=== PATIENT | male | born 1965 | race Caucasian/White ===

== ENCOUNTER 2018-04-14 06:14 | Emergency (ER) | payer OTHER ==
[2018-04-14] MEDS ORDERED: Tetracaine 0.5% OPTH.SOL 4 ML* 1 DROP BTL BOTH EYES ONE (06:30)
[2018-04-14] MEDS ORDERED: Fluorescein Sod TOPICAL 0.6* 0.6 MG TEST OPHTHALMIC ONE (06:30)
--- NOTE | 2018-04-14 06:58 | ED ---
Throat Pain/Nasal Congestion - HPI Summary HPI Summary: Patient is a 52-year-old male who presents emergency department for eye pain. Patient states yesterday he was working on his car and got metal, dirt and rubber in his eyes. Patient was seen in an outside ER and was prescribed antibiotic drops and proparacaine. Patient states he only used numbing eye drop about 3 times last night. Pt. states they removed a piece of metal from left eye. Pt. states when he woke up this morning his pain was worse and could not open his eyes secondary to pain and presented to the ER with this . Pt. states he has extreme photophobia. Symptoms are moderate in severity. Patient also notes that he chipped a tooth yesterday would like that to be looked at. He states he is due to have multiple teeth extracted this summer. - History of Current Complaint Chief Complaint: EDEyeProblem Time Seen by Provider: 04/14/18 06:30 Hx Obtained From: Patient, Family/Glove Maker - Allergies/Home Medications Allergies/Adverse Reactions: Allergies Allergy/AdvReac Type Severity Reaction Status Date / Time Iodinated Contrast- Oral and Allergy Rash Verified 04/14/18 06:21 IV Dye metformin Allergy Diarrhea Verified 04/14/18 06:21 Home Medications: Home Medications Insulin GLARGINE(*) [Lantus(*)] 25 units SUBCUT DAILY 04/14/18 [History Confirmed 04/14/18] Metoprolol Succinate XL TAB* [Toprol XL TAB*] 50 mg PO DAILY 04/14/18 [History Confirmed 04/14/18] Ramipril CAP* [Altace CAP*] 2.5 mg PO DAILY 04/14/18 [History Confirmed 04/14/18 ] PMH/Surg Hx/FS Hx/Imm Hx Previously Healthy: Yes Endocrine/Hematology History: Reports: Hx Diabetes Denies: Hx Thyroid Disease Cardiovascular History: Reports: Hx Angina, Hx Coronary Artery Disease - STENT RCA, Hx Hypercholesterolemia - HLD, Hx Hypertension, Hx Myocardial Infarction, Other Cardiovascular Problems/Disorders - hx of CVA and TIA Denies: Hx Congestive Heart Failure, Hx Pacemaker/ICD Respiratory History: Denies: Hx Asthma, Hx Chronic Obstructive Pulmonary Disease (COPD) GI History: Denies: Hx Ulcer History: Denies: Hx Dialysis, Hx Renal Disease Musculoskeletal History: Denies: Hx Back Problems Sensory History: Reports: Hx Cataracts - S/P CATARACT SURGERY, Hx Contacts or Glasses - READER GLASSES Denies: Hx Hearing Aid Opthamlomology History: Reports: Hx Cataracts - S/P CATARACT SURGERY, Hx Contacts or Glasses - READER GLASSES Neurological History: Reports: Hx CVA Denies: Hx Dementia, Hx Seizures Psychiatric History: Denies: Hx Panic Disorder - Surgical History Surgery Procedure, Year, and Place: cardiac cath X2 2010 & 2011,cataracts Infectious Disease History: No Infectious Disease History: Denies: Hx Hepatitis, Hx Human Immunodeficiency Virus (HIV), Traveled Outside the [place] in Last 30 Days - Social History Lives: With Family Alcohol Use: None Alcohol Amount: unknown Substance Use Type: Reports: None Hx Tobacco Use: Yes Smoking Status (MU): Current Every Day Smoker Type: Cigarettes Amount Used/How Often: 1.5 packs per day Length of Time of Smoking/Using Tobacco: PT STATES HE STOPPED FOR A COUPLE YEARS Have You Smoked in the Last Year: Yes Review of Systems Constitutional: Negative Positive: Photophobia, Erythema Positive: Dental Pain All Other Systems Reviewed And Are Negative: Yes Physical Exam Triage Information Reviewed: Yes Vital Signs On Initial Exam: Initial Vitals Temp Pulse Resp BP Pulse Ox 97.5 F 70 16 134/73 96 04/14/18 06:17 04/14/18 06:17 04/14/18 06:17 04/14/18 06:17 04/14/18 06:17 Vital Signs Reviewed: Yes Appearance: Positive: Pain Distress - Pt. lyingin a dark room wearing sunglasses. Appears uncomfortable but nontoxic. present. Skin: Positive: Warm, Dry Head/Face: Positive: Normal Head/Face Inspection Eyes: Positive: EOMI, CLARA, Conjunctiva Inflammed, Other: - No periorbital erythema or edema. Anterior chamber is clear. No obvious corneal ulceration. Dental: Positive: Other - Poor dentition noted throughout. Fracture noted to tooth #19. Surrounding gums are not erythematous or edematous. No fluctuance. No facial swelling or trismus. Neck: Positive: Supple Neurological: Positive: Normal, CN Intact II-III Psychiatric: Positive: Normal Procedures - Procedure Summary Procedure Summary: Bilateral eyes were anesthetized with tetracaine drops and stained with fluorescein dye. Examined under Wood's lamp. Left: Small area of uptake at about 5 o clock. Larger area of uptake noted to the medial aspect of the cornea. No ulceration noted. Right: No significant uptake noted. Eye lids everted and no FB identified. Pt. tolerated well. Diagnostics - Vital Signs Vital Signs Temp Pulse Resp BP Pulse Ox 04/14/18 06:17 97.5 F 70 16 134/73 96 - Laboratory Lab Statement: Any lab studies that have been ordered have been reviewed, and results considered in the medical decision making process. EENT Course/Dx - Course Course Of Treatment: Patient presenting to the ER for reevaluation of eye pain. He appears to have multiple small corneal abrasions on exam. Visual acuity as documented. Pt.'s tetanus was updated today. I spoke with the nurse at Dr. Gotti's office, ophthalmology, and they can see patient in the office this morning after he is discharged from the ER. Will switch patient to erythromycin ointment instead of drops for comfort. Also advised patient that he should not use the numbing drops he was given from the ER yesterday. Advised him these drops can cause permanent damage his eye. Advised Tylenol or Motrin for pain as directed. Patient was also prescribed chlorhexidine mouthwash for his dentalgia and dental fracture. Advised to follow-up with his dentist as well. Patient understands and agrees with plan. Discharged with his to be seen by ophthalmology today. - Differential Diagnoses Differential Diagnoses: Corneal Abrasion, Foreign Body, Keratitis, Penetrating Injury, Uveitis - Diagnoses Provider Diagnoses: Corneal abrasion, Broken tooth Discharge - Sign-Out/Discharge Documenting (check all that apply): Discharge/Admit/Transfer - Discharge Plan Condition: Good Disposition: HOME Prescriptions: Chlorhexidine MOUTHWASH 0.12%* [Peridex Mouth Wash 0.12%*] 15 ml .SEE ORDER BID 7 Days #210 udc Erythromycin OPTH OINT* [Erythromycin 0.5% OPTH OINT*] 1 applic BOTH EYES QID 10 Days ophth.oint Erythromycin TOPICAL GEL* [Erythromycin OPTH OINT*] 1 applic TOPICAL TID #1 oint Patient Education Materials: Corneal Abrasion (ED), Toothache (ED) Referrals: Sourav Pham MD [Primary Care Provider] - Sudarshan Gotti MD [Medical Doctor] - Additional Instructions: Dr. Gotti will see you in his office this morning- go to his office after you are discharged from the ER Use erythromycin ointment antibiotic inside of prescribed drops Do not use proparacaine numbing eye drops Schedule a follow up with your dentist as well Tylenol or Motrin for pain as directed Return to ER immediately if symptoms change or worsen - Billing Disposition and Condition Condition: GOOD Disposition: HOME
[2018-04-14] MEDS ORDERED: Tetan/Diph/Pertus SYR(Tdap)* 0.5 ML SYR(BOOSTRIX) use SYR IM ONE (07:19)
[2018-04-14 08:18] VITALS: BP 122/67
== END 2018-04-14 08:14 | disposition home or self-care (01) ==
LOC: ED 06:14
DX: S05.02XA Injury of conjunctiva and corneal abrasion without foreign body, left eye, initial encounter (principal); X58.XXXA Exposure to other specified factors, initial encounter; Y93.89 Activity, other specified; Y92.9 Unspecified place or not applicable; Z23 Encounter for immunization; K03.81 Cracked tooth; E11.9 Type 2 diabetes mellitus without complications; Z79.4 Long term (current) use of insulin; I25.119 Atherosclerotic heart disease of native coronary artery with unspecified angina pectoris; I10 Essential (primary) hypertension; Z95.5 Presence of coronary angioplasty implant and graft; E78.00 Pure hypercholesterolemia, unspecified; Z86.73 Personal history of transient ischemic attack (TIA), and cerebral infarction without residual deficits; Z88.8 Allergy status to other drugs, medicaments and biological substances; Z91.041 Radiographic dye allergy status; F17.210 Nicotine dependence, cigarettes, uncomplicated
CPT/HCPCS: 90471; 90715; 99282; A9270-GY

== ENCOUNTER 2018-09-29 12:12 | Day surgery (SDC) | payer OTHER ==
[~2018-09-29 12:12] MED LIST: Buffered Lidocaine 0.9% SYRIN* 5 ML/SYR SYRINGE INTRADERM ONE
[2018-09-29] MEDS ORDERED: Propofol* 10 MG/ML 20 ML BTL IV PUSH ONE (12:31)
[2018-09-29] MEDS ORDERED: Succinylcholine* 20 MG/ML 10 ML VIAL ONE (12:31)
[2018-09-29] MEDS ORDERED: Lidocaine 2% PF * 5 ML VIAL ONE ×2 (12:31→15:17)
[2018-09-29] MEDS ORDERED: Rocuronium* 10 MG/ML VIAL ONE (14:09)
[2018-09-29] MEDS ORDERED: Sugammadex * 200 MG/2 ML VIAL IV PUSH ONE (14:10)
[2018-09-29] MEDS ORDERED: Morphine VIAL* 10 MG/ML 1 ML VIAL ONE (14:22)
[2018-09-29] MEDS ORDERED: Levalbuterol 1.25MG/0.5ML NEB ONE (14:22)
[2018-09-29] MEDS ORDERED: Midazolam* 1 MG/ML 5 ML VIAL (5 MG) ONE (14:32)
[2018-09-29] MEDS ORDERED: fentaNYL* 50 MCG/ML 2 ML VIAL (100 MCG VIAL) ONE (14:41)
[2018-09-29] MEDS ORDERED: Ondansetron INJ* 2 MG/ML VIAL ONE (15:00)
[2018-09-29] MEDS ORDERED: Dexamethasone IV* 4 MG/ML 1 ML (4 MG) ONE (15:00)
[2018-09-29] MEDS ORDERED: Metoclopramide IV* 5 MG/ML 2 ML VIAL IV PRN (15:07)
[2018-09-29] MEDS ORDERED: fentaNYL* 50 MCG/ML 2 ML VIAL (100 MCG VIAL) IV PRN (15:07)
[2018-09-29] MEDS ORDERED: Acetaminophen TAB* 325 MG PO PRN (15:07)
[2018-09-29] MEDS ORDERED: Naloxone* 0.4 MG/ML 1 ML VIAL IV PRN (15:07)
[2018-09-29] MEDS ORDERED: Benzonatate CAP* 100 MG PO ONE (16:19)
[2018-09-29 16:40] VITALS: BP 110/75
--- NOTE | 2018-09-30 04:08 | PRO ---
BRONCHOSCOPY REPORT: DATE OF PROCEDURE: 09/29/18 PROCEDURE PERFORMED: Bronchoscopy with endobronchial ultrasound-guided fine- needle aspiration from station 7 and station R4 lymph nodes. PRE-PROCEDURAL DIAGNOSIS: Lymphadenopathy. ANESTHESIA: General anesthesia. DESCRIPTION OF PROCEDURE: Informed consent was obtained from the patient prior to the procedure after all the risks and benefits were thoroughly explained. The patient with significant smoking history, recently found to have significant mediastinal and hilar adenopathy. The patient was intubated with size 8.5 endotracheal tube. Flexible bronchoscope was utilized at the bedside for airway inspection. No endobronchial lesions were noted, mucosal irregularity noted. Thick white secretions were noted and were suctioned. Bronchoscope was then withdrawn and EBUS bronchoscope was inserted. Station 7 lymph node was significantly enlarged and was accessed with 3 passes. Rapid on- site evaluation revealed lymphatic tissue, no malignant cells were noted. No evidence of granulomas was seen. Bronchoscope was then pulled back into station R4 level and was accessed with 2 passes. Rapid on-site evaluation revealed lymphatic tissue with no malignant cells, no granulomas seen. EBUS bronchoscope was then withdrawn and flexible bronchoscope was inserted and endobronchial biopsies were obtained with 4 passes from left lower lobe. No significant bleeding was noted. The patient tolerated the procedure well. The patient was extubated and seen in Recovery in optimal condition. [id number]/CPS #: [id number] [facility] CAMPUSGladys
== END 2018-09-29 16:57 | disposition home or self-care (01) ==
LOC: OR 12:12
PROVIDERS: ATTEND Internal Medicine
DX: J98.4 Other disorders of lung (principal); F17.200 Nicotine dependence, unspecified, uncomplicated; G47.9 Sleep disorder, unspecified; E66.09 Other obesity due to excess calories; E11.9 Type 2 diabetes mellitus without complications; Z79.84 Long term (current) use of oral hypoglycemic drugs
CPT/HCPCS: 88172; 88173; 88184; 88187; 88188; 88189; 88305; A9270-GY; J0330; J1100; J2250; J2270; J2405; J2704; J3010

== ENCOUNTER 2020-02-22 16:55 | Emergency (ER) | payer OTHER ==
[2020-02-22 17:16] LABS: ABS Basophils 0.1 10^3/ul (0-0.2); ABS Eosinophils 0.2 10^3/ul (0-0.6); ABS Lymphocytes 3.5 10^3/ul (1.0-4.8); ABS Monocytes 0.6 10^3/ul (0-0.8); ABS Neutrophils 6.6 10^3/ul (1.5-7.7); Eosinophil % 1.4 %; Hematocrit 41 % (42-52); Hemoglobin 14.6 g/dL (14.0-18.0); Lymphocyte % 32.1 %; Mean Corpuscular HGB Conc 36 g/dL (31-36); Mean Corpuscular Hemoglobin 28 pg (27-31); Mean Corpuscular Volume 79 fL (80-94); Mean Platelet Volume 7.7 fL (7.4-10.4); Platelet Count 225 10^3/uL (150-450); Red Cell Distribution Width 13 % (10-15); White Blood Count 10.9 10^3/uL (3.5-10.8)
--- OUTSIDE RECORDS SUMMARY | 2020-02-22 17:18 | XMS REPORT | Continuity of Care Document ---
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 - [facility] Care Team Information Boiler Plant Operator [facility] Care Team Information Boiler Plant Operator [facility] - Physical Therapy Problems Active Problems Provider Date Interstitial lung disease Sourav Pham M.D.,FACP Onset: 09/05/2018 Note: vs COPD Type II diabetes mellitus uncontrolled Francois Mcgregor M.D. Onset: 2016 Chronic ischemic heart disease Erick Wetzel M.D. Onset: 01/22/2016 Essential hypertension Erick Wetzel M.D. Onset: 01/29/2016 Hypertriglyceridemia Uche Ye NP Onset: 02/11/2016 H/O: TIA Uche Ye NP Onset: 01/16/2016 Note: went to [facility] er for slurred speech Cerebral artery occlusion Justice Foster MD Onset: 03/12/2016 Gastroesophageal reflux disease Uche Ye NP Onset: 07/04/2016 without esophagitis Very heavy cigarette smoker (40+ Sourav Pham M.D.,FACP Onset: 2016 cigs/day) Intermittent asthma Sourav Pham M.D.,FACP Onset: 01/06/2017 Note: on PFTs Tobacco user Elizabet Portillo MD Onset: 01/08/2017 Disturbance in sleep behavior Elizabet Portillo MD Onset: 01/08/2017 Disorder of teeth AND/OR supporting Francois Mcgregor M.D. Onset: 10/19/2017 structures Social History Type Date Description Comments Sex Unknown Tobacco Use Start: Unknown Heavy tobacco smoker (more than 10 cigarettes/day) ETOH Use 04/08/2017 Denies alcohol use Recreational Drug Use Denies Drug Use Tobacco Use Reviewed: 11/19/17 Patient is a current 2 ppd smoker, smokes every day Tobacco Use Start: Unknown Heavy tobacco smoker 2 packs per day (more than 10 cigarettes/day) Smoking Status Reviewed: 02/02/20 Patient is a current 2 ppd smoker, smokes every day Exercise Type/Frequency Walks daily Allergies, Adverse Reactions, Alerts Active Allergies Reaction Severity Comments Date Contrast Dye hives 01/22/2016 Metformin diarrhea, even on LA version 08/20/2016 Invokana urine incontinence 05/20/2017 Codeine nightmares 10/14/2018 Medications Active Medications SIG Qnty Indications Ordering Date Provider Humulin R U-500 50 units twice 12ml E11.65 Edil Ramsey MD 11/29/2019 Kwikpen daily or as 500Unit/ML directed; mdd 150 Solution Pen-Inject units/day Benzonatate one by mouth three 30caps J06.9 Lisa Owens, 11/25/2019 200mg times daily as N.P. Capsules needed for cough Amitriptyline HCL 10mg at bedtime 30tabs E11.649 Edil Ramsey MD 2018 10mg Tablets Tamsulosin HCL one by mouth daily 90caps N40.1 Yuli Blairon, 01/25/2019 0.4mg at night Priti, FACP Capsules Sildenafil Citrate take 2-5 tablets 40tabs N52.9 Lisa Graciela, 10/06/2018 by mouth one hour N.P. 20mg Tablets prior to intercourse Ramipril Take One Capsule 30caps Mita 02/03/2018 2.5mg By Mouth Every Day Priti Palmer Capsules Pen [place] 01/29" use daily w/ 60units E11.65 Edil Ramsey MD 11/13/2017 31G Basaglar and X 5 mm Misc Victoza Toprol XL take one tablet by 90tabs Karyn Borja MD 08/19/2017 50mg mouth every day Tablets ER 24HR Clopidogrel take one tablet by 30tabs I25.10 Yuli Gonzalez, 01/14/2017 Bisulfate mouth every day MRebel, FACP 75mg Tablets Freestyle Lite Blood check fingerstick 1units E11.40 Sourav Ackerman 2015 Glucose Monitoring three times a day Priti Pham,FACP System Device Freestyle Lite Test test up to 2 times 100units Edil Ramsey MD 2015 a day and as Strips needed Aspirin chew one tablet by 90units I25.10 Lisa Owens, 08/13/2016 81mg Chewtabs mouth every day N.P. E11.65 I10 Omeprazole take one capsule by 30caps K21.9 Yuli Gonzalez M.D., 20mg Capsules DR mouth every day FACP Atorvastatin Calcium take one tablet by 90tabs Yuli Gonzalez M.D., 40mg mouth at bedtime FACP Tablets History Medications Basaglar Kwikpen inject 40 units 15ml E11.649 Edil Ramsey MD 09/15/2019 - s/c once daily in 11/28/2019 100Unit/ML Solution the morning, MDD Pen-Inject 50 Admelog Solostar 20 units with 9ml E11.64Alex Ramsey MD 09/15/2019 - largest meal of 11/28/2019 100Unit/ML Solution the day or as Pen-Inject directed, MDD 30 Steglatro 1 by mouth every 30tabs E11.64Alex Ramsey MD 09/15/2019 - 5mg day in the 10/04/2019 Tablets morning Medications Administered in Office Medication SIG Qnty Indications Ordering Provider Date Depomedrol 40MG Jose Carlos Valdez MD 12/15/2019 Injection Depomedrol 40MG Jose Carlos Valdez MD 12/15/2019 Injection Immunizations CPT Code Status Date Vaccine Reaction Lot # [id number] Given 08/06/2018 Influenza Virus Vaccine, [id number] Quadrivalent, Split, Preservative Free [id number] Given 11/13/2017 Influenza Virus Vaccine, [id number] Quadrivalent, Split, Preservative Free [id number] Given 01/16/2017 Hepatitis B Vaccine Adult [id number] Dosage 03410 Given 10/17/2016 Hepatitis B Vaccine Adult Dosage 95655 Given 08/20/2016 Hepatitis B Vaccine Adult no reaction, pt [id number] Dosage tolerated it well 88506 Given 08/20/2016 Influenza Virus Vaccine, Quadrivalent, Split, Preservative Free 63549 Given 04/07/2016 Tdap - [id number] Tetanus/Diptheria/Acellular Pertussis Vital Signs Date Vital Result Comment 02/02/2020 1:32pm Height 64 inches 5'4" Weight 182.00 lb w/ shoes Heart Rate 110 /min BP Systolic Sitting 113 mmHg BP Diastolic Sitting 80 mmHg BMI (Body Mass Index) 31.2 kg/m2 12/26/2019 1:17pm Height 64 inches 5'4" Weight 182.00 lb Heart Rate 112 /min BP Systolic 130 mmHg BP Diastolic 86 mmHg Pain Level 8 BMI (Body Mass Index) 31.2 kg/m2 Results Test Acquired Date Facility Test Result H/L Range Note Laboratory test 02/02/2020 [facility] Hemoglobin A1c >10% finding Urine Culture And 11/25/2019 [facility] Urine Culture SEE RESULT 1, [address] [place] [address] [phone] Laboratory test 09/15/2019 [facility] Hemoglobin A1c 10.8 % High 4.0-5.[address] (Glyco HGB) [place] [address] [phone] 1 [id number] 2 SEE RESULT BELOW Name: CONRAD COORNADOCARROLL : [address]: Lisa Owens NP Acct: [id number] Unit: [id number] AGE: 54 Location: [facility] Re11/25/19 SEX: M Status: REG REF SPEC: [id number] SINGH: 11/25/19-[address]: Lisa Owens NP REQ: [id number] RECD: 11/25/19-124 STATUS: COMP _ SOURCE: URINE SPDESC: ORDERED: Urine Culture COMMENTS: [id number] Urine Source: Random Procedure Result Reported Site Urine Culture Final 11/26/19- 1533 ML No Growth (<1,000 CFU/mL) * ML - Main Lab . END OF REPORT DEPARTMENT OF PATHOLOGY, [address] [place] [address] Simba Amaya M.D. Director [facility] # [id number] 3 Therapeutic target for the treatment of diabetes mellitus patients is <7% HBA1C, and in selective patients <6.0%. Please refer to [employer] diabetic care guidelines for further information. Procedures Date Code Description Status 12/15/2019 Inject/Drain Joint/Bursa Major W/O US Completed 12/15/2019 Inject/Drain Joint/Bursa Major W/O US Completed 05/02/2019 [id number] Diabetic Retinal Eye Exam Completed 05/10/2018 [id number] Colonoscopy Completed 04/16/2018 [id number] Diabetic Retinal Eye Exam Completed 01/19/2017 [id number] Diabetic Retinal Eye Exam Completed Medical Devices Description No Information Available Encounters Type Date Location Provider Dx Diagnosis Office Visit 02/14/2020 [facility] Jose Carlos Fiore M17.11 Unilateral primary 3:30p at [place] José Miguel osteoarthritis, right knee M25.561 Pain in right knee Office Visit 02/02/2020 [facility] Edil Coch, E11.65 Type 2 diabetes 1:40p Endocrinology of mellitus with Risk Control Consultant hyperglycemia 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 Office Visit 12/26/2019 1:30p Ermias Fiore S46.012D Strain of Orthopedics at MD José Miguel musc/tend the [place] rotator cuff of left shoulder, subs M17.11 Unilateral primary osteoarthritis, right knee M25.561 Pain in right knee Office Visit 12/15/2019 Ermias Fiore M17.11 Unilateral primary 10:30a Orthopedics at MD José Miguel osteoarthritis, [place] right knee M75.52 Bursitis of left shoulder M25.561 Pain in right knee M75.82 Other shoulder lesions, left shoulder Office Visit 11/29/2019 [facility] and Edil Ramsey, E11.65 Type 2 diabetes 2:00p Endocrinology of MD mellitus with [facility] hyperglycemia 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 hypertension F17.200 Nicotine dependence, unspecified, uncomplicated E11.40 Type 2 diabetes mellitus with diabetic neuropathy, unsp J06.9 Acute upper respiratory infection, unspecified R30.0 Dysuria S83.421A Sprain of lateral collateral ligament of right knee, init M75.52 Bursitis of left shoulder Z79.4 [facility] (current) use of insulin Office Visit 09/15/2019 Ermias Ramsey, E11.649 Type 2 diabetes 3:00p Endocrinology of mellitus with Risk Control Consultant hypoglycemia without coma Z79.4 [facility]PC (current) use of insulin Assessments Date Code Description Provider 02/14/2020 M17.11 Unilateral primary osteoarthritis, right Jose Carlos Valdez MD knee 02/14/2020 M25.561 Pain in right knee Jose Carlos Valdez MD 02/02/2020 E11.65 Type 2 diabetes mellitus with Edil Ramsey MD hyperglycemia 02/02/2020 Z79.4 [facility]PC (current) use of insulin Edil Ramsey MD 12/26/2019 S46.012D Strain of muscle(s) and tendon(s) of the Jose Carlos Valdez MD rotator cuff of left shoulder, subsequent encounter 12/26/2019 M17.11 Unilateral primary osteoarthritis, right Jose Carlos Valdez MD knee 12/26/2019 M25.561 Pain in right knee Jose Carlos Valdez MD 12/15/2019 M17.11 Unilateral primary osteoarthritis, right Jose Carlos Valdez MD knee 12/15/2019 M75.52 Bursitis of left shoulder Jose Carlos Valdez MD 12/15/2019 M25.561 Pain in right knee Jose Carlos Valdez MD 12/15/2019 M75.82 Other shoulder lesions, left shoulder Jose Carlos Valdez MD 11/29/2019 E11.65 Type 2 diabetes mellitus with Edil Ramsey MD hyperglycemia 11/29/2019 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 11/25/2019 F17.200 Nicotine dependence, unspecified, Lisa Varn, N.P. uncomplicated 11/25/2019 E11.40 Type 2 diabetes mellitus with diabetic Lisa Varn, N.P. neuropathy, unspecified 11/25/2019 J06.9 Acute upper respiratory infection, Lisa Varn, N.P. unspecified 11/25/2019 R30.0 Dysuria Lisa Varn, N.P. 11/25/2019 S83.421A Sprain of lateral collateral ligament of Lisa Varn, N.P. right knee, initial encounter 11/25/2019 M75.52 Bursitis of left shoulder Lisa Varn, N.P. 11/25/2019 Z79.4 FPC (current) use of insulin Lisa Varn, N.P. 09/15/2019 E11.649 Type 2 diabetes mellitus with hypoglycemia Edil Ramsey MD without coma 09/15/2019 Z79.4 FPC (current) use of insulin Edil Ramsey MD Plan of Treatment 02/14/2020 - Jose Carlos Valdez, MDM17.11 Unilateral primary osteoarthritis, right kneeM25.561 Pain in right kneeNew Xrays:MRI Knee Right W/O, Ordered: 02/13Follow up:Follow up: after MRIM17.11 Unilateral primary osteoarthritis, right kneeM25.561 Pain in right kneeNew Xrays:MRI Knee Right W/O, Ordered: 02/13Follow up:Follow up: after MRI Functional Status Description No Information Available Mental Status Description No Information Available Referrals Refer to Reason for Referral Status Appt Date Aby Lee MD Patient with left shoulder pain referred for Sent 2019 evaluation and treatment. [address] [place] [phone]
--- OUTSIDE RECORDS SUMMARY | 2020-02-22 17:19 | XMS REPORT | Continuity of Care Document ---
:1965 External Reference #:[id number] Author Name Edil Ramsey MD (transmitted by agent of provider Jody Shah) Address [address] [place] [phone] Care Team Providers Name Role Phone Falguni King MD - Neurology Care Team Information Dietitian Therapeutic [phone] Elizabet Portillo MD - Pulmonary Care Team Information Dietitian Therapeutic Disease Kristi Nash MD - Gastroenterology Care Team Information Dietitian Therapeutic [phone] [facility] - Care Team Information Dietitian Therapeutic [phone] Medical Office Technology Instructor Jared Noonan DO - Emergency Medicine Care Team Information Dietitian Therapeutic [phone] Edil Ramsey MD - Endocrinology, Care Team Information Dietitian Therapeutic Diabetes & Metabolism Karyn Borja M.D. - [facility] Care Team Information Dietitian Therapeutic [facility] Care Team Information Dietitian Therapeutic [facility] - Physical Therapy Problems Active Problems Provider Date Interstitial lung disease Sourav Pham M.D.,FACP Onset: 09/05/2018 Note: vs COPD Type II diabetes mellitus uncontrolled Francois Mcgregor M.D. Onset: 2016 Chronic ischemic heart disease Erick Wetzel M.D. Onset: 01/22/2016 Essential hypertension Erick Wetzel M.D. Onset: 01/29/2016 Hypertriglyceridemia Uche Ye NP Onset: 02/11/2016 H/O: TIA Uche Ye NP Onset: 01/16/2016 Note: went [place] [facility] [place] slurred speech Cerebral artery occlusion [...] one by mouth three 30caps J06.9 Lisa Adenn, 11/25/2019 200mg times daily as N.P. Capsules needed for cough Amitriptyline HCL 10mg at bedtime 30tabs E11.649 Edil Ramsey MD 2018 10mg Tablets Tamsulosin HCL one by mouth daily 90caps N40.1 Yuli Lisa, 01/25/2019 0.4mg at night Priti, FACP Capsules Sildenafil Citrate take 2-5 tablets 40tabs N52.9 Yuli Blairon, 10/06/2018 by mouth one hour M.D., FACP 20mg Tablets prior to intercourse Ramipril Take One Capsule 30caps Mita 02/03/2018 2.5mg By Mouth Every Day Priti Palmer Capsules Pen [employer] 01/29" use daily w/ 60units E11.65 Edil Ramsey MD 11/13/2017 31G Basaglar and X 5 mm Misc Victoza Toprol XL take one tablet by 90tabs Karyn Borja MD 08/19/2017 50mg mouth every day Tablets ER 24HR Clopidogrel take one tablet by 30tabs I25.10 Yuli Gonzalez, 01/14/2017 Bisulfate mouth every day M.D., FACP 75mg Tablets Freestyle Lite Blood check [...] one tablet by 90tabs Yuli Gonzalez M.D., 0000 0000 40mg mouth at bedtime FACP Tablets History [...] Code Status Date Vaccine Reaction Lot # [id number] Given 08/06/2018 Influenza Virus Vaccine, [id number] Quadrivalent, Split, Preservative Free 56837 Given 11/13/2017 Influenza Virus Vaccine, [id number] Quadrivalent, Split, Preservative Free 40043 Given 01/16/2017 Hepatitis B Vaccine Adult [id number] Dosage 44065 Given 10/17/2016 Hepatitis B Vaccine Adult Dosage 91836 Given 08/20/2016 Hepatitis B Vaccine Adult no reaction, pt [id number] Dosage tolerated it well 41767 Given 08/20/2016 Influenza Virus Vaccine, Quadrivalent, Split, Preservative Free 15859 Given 04/07/2016 Tdap - [id number] Tetanus/Diptheria/Acellular Pertussis [...] Result H/L Range Note Laboratory test 02/02/2020 [facility] Hemoglobin A1c >10% finding Urine Culture And 11/25/2019 [facility] Urine Culture SEE RESULT 1, [address] [place] [address] [phone] Laboratory test 09/15/2019 [facility] Hemoglobin A1c 10.8 % High 4.0-5.[address] (Glyco HGB) [place] [address] [phone] 1 [id number] 2 SEE RESULT BELOW Name: CONRAD CORONADOCARROLL : [address]: Lisa Owens NP Acct: [id number] Unit: [id number] AGE: 54 Location: [facility] Re11/25/19 SEX: M Status: REG REF SPEC: [id number] SINGH: 11/25/19-[address]: Lisa Owens NP REQ: [id number] RECD: 11/25/19-124 STATUS: COMP _ SOURCE: URINE SPDESC: ORDERED: Urine Culture COMMENTS: [id number] Urine Source: Random Procedure Result Reported Site Urine Culture Final 11/26/19- 1533 ML No Growth (<1,000 CFU/mL) * ML - Main Lab . END OF REPORT DEPARTMENT OF PATHOLOGY, [address] [place] [address] Simba Amaya M.D. Director [facility] # [id number] 3 Therapeutic target for the treatment of diabetes mellitus patients is <7% HBA1C, and in selective patients <6.0%. Please refer to [place] [employer] diabetic care guidelines for further information. Procedures Date Code Description Status 12/15/2019 Inject/Drain Joint/Bursa Major W/O US Completed 12/15/2019 Inject/Drain Joint/Bursa Major W/O US Completed 05/02/2019 [id number] Diabetic Retinal Eye Exam Completed 05/10/2018 [id number] Colonoscopy Completed 04/16/2018 [id number] Diabetic Retinal Eye Exam Completed 01/19/2017 [id number] Diabetic Retinal Eye Exam Completed Medical Devices Description No Information Available Encounters Type Date Location Provider Dx Diagnosis Office Visit 02/02/2020 Ermias Ramsey MD E11.65 Type 2 diabetes 1:40p Endocrinology of [facility] mellitus with hyperglycemia Z79.4 clerk supervisor (current) use of insulin Office Visit 12/26/2019 1:30p Ermias Fiore S46.012D Strain of [facility]oped[facility] at [facility] musc/tend the [place] rotator cuff of left shoulder, subs M17.11 Unilateral primary osteoarthritis, right knee M25.561 Pain in right knee Office Visit 12/15/2019 Ermias Fiore M17.11 Unilateral primary 10:30a Orthopedics at [facility] osteoarthritis, [place] right knee M75.52 Bursitis of left shoulder M25.561 Pain in right knee M75.82 Other shoulder lesions, left shoulder Office Visit 11/29/2019 Ermias Ramsey, E11.65 Type 2 diabetes 2:00p Endocrinology of [facility] mellitus with Adjunct Psychology Faculty Member hyperglycemia Z79.4 shelter (current) use of insulin Office Visit 11/25/2019 10:20a Adjunct Psychology Faculty Member Internal Lisa Keikon, I10 Essential ( primary) Medicine - Ccmob N.P. hypertension F17.200 Nicotine dependence, unspecified, uncomplicated E11.40 Type 2 diabetes mellitus with diabetic neuropathy, unsp J06.9 Acute upper respiratory infection, unspecified R30.0 Dysuria S83.421A Sprain of lateral collateral ligament of right knee, init M75.52 Bursitis of left shoulder Z79.4 shelter (current) use of insulin Office Visit 09/15/2019 [facility] Edil Ramsey, E11.649 Type 2 diabetes 3:00p Endocrinology of [facility] mellitus with Adjunct Psychology Faculty Member hypoglycemia without coma Z79.4 shelter (current) use of insulin Assessments Date Code Description Provider 02/02/2020 E11.65 Type 2 diabetes mellitus with Edil Ramsey MD hyperglycemia 02/02/2020 Z79.4 shelter (current) use of insulin Edil Ramsey MD [...] with Edil Ramsey MD hyperglycemia 11/29/2019 Z79.4 clerk supervisor (current) use of insulin Edil Ramsey MD 11/25/2019 I10 Essential (primary) hypertension Lisa Owens, N.P. 11/25/2019 F17.200 Nicotine dependence, unspecified, Lisa Keikon, N.P. uncomplicated 11/25/2019 E11.40 Type 2 diabetes mellitus with diabetic Lisa Adenn, N.P. neuropathy, unspecified 11/25/2019 J06.9 Acute upper respiratory infection, Lisa Graciela, N.P. unspecified 11/25/2019 R30.0 Dysuria Lisa Owens, N.P. 11/25/2019 S83.421A Sprain of lateral collateral ligament of Lisa Graciela, N.P. right knee, initial encounter 11/25/2019 M75.52 Bursitis of left shoulder Lisa Owens, N.P. 11/25/2019 Z79.4 clerk supervisor (current) use of insulin Lisa Owens, N.P. 09/15/2019 E11.649 Type 2 diabetes mellitus with hypoglycemia Edil Ramsey MD without coma 09/15/2019 Z79.4 shelter (current) use of insulin Edil Ramsey MD Plan of Treatment Future Appointment(s):02/14/2020 10:15 am - Jose Carlos Valdez MD at [facility] at Szdqwl9702/02/2020 - Edil Ramsey MDE11.65 Type 2 diabetes mellitus with hyperglycemiaNew Labs:Hemoglobin A1c, Ordered: Instructions:1. Change U500 insulin to 50 units twice daily. 2. Increase U500 insulin by 5 units every week untilyour blood glucose is less than 160mg/dL in the morning. 3. Always check blood glucose if you are feeling sick.Z79.4 shelter (current) use of insulin Functional Status Description No Information Available Mental Status Description No Information Available Referrals Refer to Dr Reason for Referral Status Appt Date Aby Lee MD Patient with left shoulder pain referred for Sent 2019 evaluation and treatment. [address] [place] [phone]
--- OUTSIDE RECORDS SUMMARY | 2020-02-22 17:19 | XMS REPORT | Continuity of Care Document ---
:1965 External Reference #:[id number] Author Name Jose Carlos Valdez MD (transmitted by agent of provider Tamiko Jorge) Address [address] [place] [phone] Care Team Providers Name Role Phone Falguni King MD - Neurology Care Team Information Game Designer [phone] Elizabet Portillo MD - Pulmonary Care Team Information Game Designer Disease Kristi Nash MD - Gastroenterology Care Team Information Game Designer [facility] - Care Team Information Game Designer [phone] Case Consultant Jared Noonan DO - Emergency Medicine Care Team Information Game Designer [phone] Edil Ramsey MD - Endocrinology, Care Team Information Game Designer [phone] Diabetes & Metabolism Karyn Borja M.D. - Family Medicine Care Team Information Game Designer [phone] Problems Active Problems Provider Date Interstitial lung disease [facility] Onset: 09/05/2018 Note: vs COPD Type II diabetes mellitus uncontrolled Francois Mcgregor M.D. Onset: 2016 Chronic ischemic heart disease Erick Wetzel M.D. Onset: 01/22/2016 Essential hypertension Erick Wetzel M.D. Onset: 01/29/2016 Hypertriglyceridemia Uche Ye NP Onset: 02/11/2016 H/O: TIA Uche Ye NP Onset: 01/16/2016 Note: went to [facility] for slurred speech Cerebral artery occlusion Justice Foster MD Onset: 03/12/2016 Gastroesophageal reflux disease Uche Ye NP Onset: 07/04/2016 without esophagitis Very heavy cigarette smoker (40+ Sourav Pham M.D.,FACP Onset: 2016 cigs/day) Intermittent asthma [facility] M.[facility] Onset: 01/06/2017 Note: on PFTs Tobacco user [...] (more than 10 cigarettes/day) Smoking Status Reviewed: 12/26/19 Patient is a current 2 ppd smoker, smokes every day Exercise Type/Frequency Walks daily Allergies, Adverse Reactions, Alerts Active Allergies Reaction Severity Comments Date Contrast Dye hives 01/22/2016 Metformin diarrhea, even on LA version 08/20/2016 Invokana urine incontinence 05/20/2017 Codeine nightmares 10/14/2018 Medications Active Medications SIG Qnty Indications Ordering Date Provider Humulin R U-500 30 units twice 12ml E11.65 Edil Ramsey MD 11/29/2019 Kwikpen daily or as 500Unit/ML directed; mdd 100 Solution Pen-Inject units/day Benzonatate one by mouth three 30caps J06.9 Lisa Owens, 11/25/2019 200mg times daily as N.P. Capsules needed for cough Amitriptyline HCL 10mg at bedtime 30tabs E11.649 Edil Ramsey MD 2018 10mg Tablets Symbicort inhale two puffs 20.4units E78.1 Karyn Borja MD 01/25/2019 by mouth twice a 80-4.5mcg/Act day rinse mouth Aerosol after using Tamsulosin HCL one by mouth daily 90caps N40.1 Yuli Gonzalez, 01/25/2019 0.4mg at night M.D., FACP Capsules Sildenafil Citrate take 2-5 tablets 40tabs N52.9 Yuli Gonzalez, 10/06/2018 by mouth one hour M.D., FACP 20mg Tablets prior to intercourse Ramipril Take One Capsule 30caps Mita 02/03/2018 2.5mg By Mouth Every Day Priti Palmer Capsules Pen [place] 3/16" use daily w/ 60units E11.65 Edil Ramsey [...] Device Freestyle Lite Test test up to 3-4 120units Sourav Ackerman 08/27/2016 times a day Priti Pham,FACP Strips Aspirin chew one tablet by 30units I25.10 Meg Liriano, 08/13/2016 81mg Chewtabs mouth every day M.D. E11.65 I10 Omeprazole take one capsule by [...] 50 Admelog Solostar 20 units with 9ml E11.649 Edil Ramsey MD 09/15/2019 - largest meal of 11/28/2019 100Unit/ML Solution the day or as Pen-Inject directed, MDD 30 Steglatro 1 by mouth every 30tabs E11.649 Edil Ramsey MD 09/15/2019 - 5mg day in the 10/04/2019 Tablets morning Medications Administered in Office Medication SIG Qnty Indications Ordering Provider Date Depomedrol 40MG Jose Carlos Valdez MD 12/15/2019 Injection Depomedrol 40MG Jose Carlos Valdez MD 12/15/2019 Injection Immunizations CPT Code Status Date Vaccine Reaction Lot # 46944 Given 08/06/2018 Influenza Virus Vaccine, [id number] Quadrivalent, Split, Preservative Free 49104 Given 11/13/2017 Influenza Virus Vaccine, [id number] Quadrivalent, Split, Preservative Free 99896 Given 01/16/2017 Hepatitis B Vaccine Adult [id number] Dosage 32843 Given 10/17/2016 Hepatitis B Vaccine Adult Dosage 11171 Given 08/20/2016 Hepatitis B Vaccine Adult no reaction, pt [id number] Dosage tolerated it well 15973 Given 08/20/2016 Influenza Virus Vaccine, Quadrivalent, Split, Preservative Free 43436 Given 04/07/2016 Tdap - 3kt29 Tetanus/Diptheria/Acellular Pertussis Vital Signs Date Vital Result Comment 12/26/2019 1:17pm Height 64 inches 5'4" Weight 182.00 lb Heart Rate 112 /min BP Systolic 130 mmHg BP Diastolic 86 mmHg Pain Level 8 BMI (Body Mass Index) 31.2 kg/m2 12/15/2019 10:11am Height 64 inches 5'4" Weight 175.00 lb Heart Rate 81 /min BP Systolic 128 mmHg BP Diastolic 70 mmHg Respiratory Rate 18 /min Body Temperature 98.0 F Pain Level 8 BMI (Body Mass Index) 30.0 kg/m2 Results Test Acquired Date Facility Test Result H/L Range Note Urine Culture And 11/25/2019 [facility] Urine Culture SEE RESULT 1, [address] [place] [address] [phone] Laboratory test 09/15/2019 [facility] Hemoglobin A1c 10.8 % High 4.0-5.[address] (Glyco HGB) [place] [address] [phone] 1 [id number] 2 SEE RESULT BELOW Name: CONRAD CARROLL CORONADO : [address]: Lisa Owens NP Acct: [id number] Unit: [id number] AGE: 54 Location: [facility] Re11/25/19 SEX: M Status: REG REF SPEC: [id number] SINGH: 11/25/19-[address]: Lisa Owens NP REQ: [id number] RECD: 11/25/19-1243 STATUS: COMP _ SOURCE: URINE SPDESC: ORDERED: Urine Culture COMMENTS: [id number] Urine Source: Random Procedure Result Reported Site Urine Culture Final 11/26/19- 1533 ML No Growth (<1,000 CFU/mL) * ML - Main Lab . END OF REPORT DEPARTMENT OF PATHOLOGY, [address] [place] [address] Simba Amaya M.D. Director [facility] # [id number] 3 Therapeutic target for the treatment of diabetes mellitus patients is <7% HBA1C, and in selective patients <6.0%. Please refer to [place] Diabetes Association diabetic care guidelines for further information. Procedures Date Code Description Status 12/15/201989041 Inject/Drain Joint/Bursa Major W/O US Completed 12/15/201990861 Inject/Drain Joint/Bursa Major W/O US Completed 05/02/2019 [id number] Diabetic Retinal Eye Exam Completed 05/10/2018 [id number] Colonoscopy Completed 04/16/2018 [id number] Diabetic Retinal Eye Exam Completed 01/19/2017 [id number] Diabetic Retinal Eye Exam Completed Medical Devices Description No Information Available Encounters Type Date Location Provider Dx Diagnosis Office Visit 11/29/2019 Ermias Ramsey MD E11.65 Type 2 diabetes 2:00p Endocrinology of [facility] mellitus with hyperglycemia Z79.4 paying teller (current) use of insulin Office Visit 11/25/2019 10:20a [facility] Internal Lisa Owens, I10 Essential ( primary) Medicine - Ccmob N.P. hypertension F17.200 Nicotine dependence, unspecified, uncomplicated E11.40 Type 2 diabetes mellitus with diabetic neuropathy, unsp J06.9 Acute upper respiratory infection, unspecified R30.0 Dysuria S83.421A Sprain of lateral collateral ligament of right knee, init M75.52 Bursitis of left shoulder Z79.4 correction (current) use of insulin Office Visit 09/15/2019 Ermias Ramsey, E11.649 Type 2 diabetes 3:00p Endocrinology of [facility] mellitus with Heddler hypoglycemia without coma Z79.4 paying teller (current) use of insulin Assessments Date Code Description Provider 12/26/2019 S46.012D Strain of muscle(s) and tendon(s) of the Jose Carlos Valdez MD rotator cuff of left shoulder, subsequent encounter 12/26/2019 M17.11 Unilateral primary osteoarthritis, right Jose Carlos Valdez MD knee 12/26/2019 M25.561 Pain in right knee Jose Carlos Valdez MD 12/15/2019 S46.012A Strain of muscle(s) and tendon(s) of the Jose Carlos Valdez MD rotator cuff of left shoulder, initial encounter 12/15/2019 M25.561 Pain in right knee Jose Carlos Valdez MD 12/15/2019 M17.11 Unilateral primary osteoarthritis, right Jose Carlos Valdez MD knee 11/29/2019 E11.65 Type 2 diabetes mellitus with Edil Ramsey MD hyperglycemia 11/29/2019 Z79.4 paying teller (current) use of insulin Edil Ramsey MD [...] left shoulder Lisa Varn, N.P. 11/25/2019 Z79.4 paying teller (current) use of insulin Lisa Varn, N.P. 09/15/2019 E11.649 Type 2 diabetes mellitus with hypoglycemia Edil Ramsey MD without coma 09/15/2019 Z79.4 correction (current) use of insulin Edil Ramsey MD Plan of Treatment Future Appointment(s):02/14/2020 10:15 am - Jose Carlos Valdez MD at [facility] at [id number]/26/2019 - Jose Carlos Valdez, MDS46.012D Strain of muscle(s) and tendon(s) of the rotator cuff of left shoulder, subsequent encounterNew Xrays:MRI Knee Left W/O, Ordered: 12/26/19Follow up:after MRIM17.11 Unilateral primary osteoarthritis, right kneeM25.561 Pain in right knee Functional Status Description No Information Available Mental Status Description No Information Available Referrals Refer to Reason for Referral Status Appt Date Aby Lee MD Patient with left shoulder pain referred for Sent 2019 evaluation and treatment. [address] [place] [address] [phone]
[2020-02-22 17:21] LABS: INR 1.04 (0.82-1.09)
--- NOTE | 2020-02-22 17:25 | ED ---
HPI Chest Pain - HPI Summary HPI Summary: This patient is a 54 y/o male presenting to [facility] c/o left sided chest pain since [id number] today. Patient describes intermittent left sided chest pain that radiates to his left arm. He notes he has tingling in left arm. Denies SOB , fever, cough, sore throat, abd pain, swelling in legs. Patient reports he had vomiting yesterday but no episodes since then. Patient states today's symptoms are similar to when he had an OH a couple of years ago. Patient additionally notes pain in his left shoulder for the past 3 weeks. PMHx includes OH s/p cardiac stents, DM, HTN. She denies open heart surgery. Patient denies hx of CHF, DVT, PE. Patient is a former smoker, states he quit 1.5 months ago. He takes 81 mg of aspirin every day. 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 His PCP is Dr. Borja. - History of Current Complaint Chief Complaint: EDChestPainROMI Time Seen by Provider: 02/22/20 17:18 Hx Obtained From: Patient Onset/Duration: Started Minutes Ago, Still Present Timing: Intermittent, Lasting Hours Current Severity: Moderate Pain Intensity: 7 Pain Scale Used: 0-10 Numeric Chest Pain Location: Left Anterior Chest Pain Radiates: No Aggravating Factor(s): Movement - of arm Alleviating Factor(s): Nothing Associated Signs and Symptoms: Positive: Chest Pain, Tingling. Negative: Shortness of Breath, Fever, Nausea, Vomiting - Additional Pertinent History Primary Care Physician: [id number] - Allergy/Home Medications Allergies/Adverse Reactions: Allergies Allergy/AdvReac Type Severity Reaction Status Date / Time canagliflozin [From Invokana] Allergy See Comment Verified 02/22/20 17:05 Iodinated Contrast Media Allergy Rash Verified 02/22/20 17:05 [Iodinated Contrast- Oral and IV Dye] metformin Allergy Diarrhea Verified 02/22/20 17:05 shellfish derived Allergy Hives Verified 02/22/20 17:05 Home Medications: Home Medications Clopidogrel TAB* [Plavix TAB*] 75 mg PO QPM 01/16/16 [History Confirmed 02/22/20 ] Omeprazole CAP (NF) [Prilosec CAP* 20 MG] 20 mg PO QPM 01/16/16 [History Confirmed 02/22/20] Aspirin EC TAB* [Ecotrin EC Low Dose 81 MG*] 81 mg PO QPM 06/12/16 [History Confirmed 02/22/20] Metoprolol Succinate XL TAB* [Toprol XL TAB*] 50 mg PO QPM 04/14/18 [History Confirmed 02/22/20] Ramipril CAP* [Altace CAP*] 2.5 mg PO QPM 04/14/18 [History Confirmed 02/22/20] Atorvastatin* [Lipitor 40 MG*] 40 mg PO QPM 09/27/18 [History Confirmed 02/22/20 ] Amitriptyline TAB* [Elavil TAB*] 10 mg PO BEDTIME 02/22/20 [History Confirmed ] Insulin Regular 500 Unit/ml [Humulin R U-500 (Concentrated) 500 units/ml 20 ml] 50 unit SUBCUT BID 02/22/20 [History Confirmed 02/22/20] Sildenafil (PULMONARY)(NF) [Revatio (NF)] 40 - 100 mg PO DAILY PRN 02/22/20 [ History Confirmed 02/22/20] Tamsulosin CAP* [Flomax CAP*] 0.4 mg PO BEDTIME 02/22/20 [History Confirmed 07/05] PMH/Surg Hx/FS Hx/Imm Hx Endocrine/Hematology History: Reports: Hx Diabetes - TYPE II-ORAL MEDICATION AND INSULIN FOR Denies: Hx Thyroid Disease Cardiovascular History: Reports: Hx Angina, Hx Coronary Artery Disease - STENT RCA-PLACED IN [place], Hx Hypercholesterolemia - HLD, Hx Hypertension - ON MEDICATIONF OF, Hx Myocardial Infarction, Other Cardiovascular Problems/ Disorders - hx of CVA and TIA Denies: Hx Congestive Heart Failure, Hx Pacemaker/ICD Respiratory History: Denies: Hx Asthma, Hx Chronic Obstructive Pulmonary Disease (COPD) GI History: Reports: Hx Gastroesophageal Reflux Disease - ON MEDICATION FOR Denies: Hx Ulcer History: Denies: Hx Dialysis, Hx Renal Disease Musculoskeletal History: Reports: Hx Arthritis - HANDS Denies: Hx Back Problems Sensory History: Reports: Hx Cataracts - HX OF, Hx Contacts or Glasses - READING GLASSES Denies: Hx Hearing Aid Opthamlomology History: Reports: Hx Cataracts - HX OF, Hx Contacts or Glasses - READING GLASSES Neurological History: Reports: Hx CVA Denies: Hx Dementia, Hx Seizures Psychiatric History: Denies: Hx Panic Disorder - Surgical History Surgical History: Yes Surgery Procedure, Year, and Place: cardiac cath X2 2010 & 2012. 2013- BILATERAL CATARACTS REMOVED Hx Anesthesia Reactions: No Infectious Disease History: No Infectious Disease History: Denies: Hx Hepatitis, Hx Human Immunodeficiency Virus (HIV), Traveled Outside the [place] in Last 30 Days - Family History Known Family History: Positive: Cardiac Disease - Mother and father with CAD, Diabetes - mother Family History: Father with stroke - Social History Alcohol Use: None Alcohol Amount: unknown Substance Use Type: Reports: None Hx Tobacco Use: Yes Smoking Status (MU): Never Smoked Tobacco Type: Cigarettes Amount Used/How Often: 2 PPD X 43 YEARS Length of Time of Smoking/Using Tobacco: PT STATES HE STOPPED FOR A COUPLE YEARS Have You Smoked in the Last Year: Yes Review of Systems Negative: Fever Negative: Sore Throat Positive: Chest Pain Negative: Shortness Of Breath, Cough Negative: Abdominal Pain Positive: Paresthesia All Other Systems Reviewed And Are Negative: Yes Physical Exam - Summary Physical Exam Summary: Constitutional: Well-developed, Well-nourished, Alert. (-) Distressed Skin: Warm, Dry HENT: Normocephalic; Atraumatic Eyes: Conjunctiva normal Neck: Musculoskeletal ROM normal neck. (-) JVD, (-) Stridor, (-) Tracheal deviation Cardio: Rhythm regular, rate normal, Heart sounds normal; Intact distal pulses; The pedal pulses are 2+ and symmetric. Radial pulses are 2+ and symmetric. (-) Murmur Pulmonary/Chest wall: Effort normal. (-) Respiratory distress, (-) Wheezes, (-) Rales. Reproducible left upper chest wall pain with movements of the shoulder. Abd: Soft, (-) tenderness, (-) Distension, (-) Guarding, (-) Rebound Musculoskeletal: (-) Edema Lymph: (-) Cervical adenopathy Neuro: Alert, Oriented x3 Psych: Mood and affect Normal Triage Information Reviewed: Yes Vital Signs On Initial Exam: Initial Vitals Temp Pulse Resp BP Pulse Ox 98.2 F 88 16 125/77 97 02/22/20 17:04 02/22/20 17:04 02/22/20 17:04 02/22/20 17:04 02/22/20 17:04 Vital Signs Reviewed: Yes Procedures - Sedation Patient Received Moderate/Deep Sedation with Procedure: No Diagnostics - Vital Signs Vital Signs Temp Pulse Resp BP Pulse Ox 02/22/20 17:04 98.2 F 88 16 125/77 97 - Laboratory Lab Results: Lab Results 02/22/20 Range/Units 17:04 WBC 10.9 H (3.5-10.8) 10^3/uL RBC 5.20 (4.18-5.48) 10^6 /uL Hgb 14.6 (14.0-18.0) g/dL Hct 41 L (42-52) % MCV 79 L (80-94) fL MCH 28 (27-31) pg MCHC 36 (31-36) g/dL RDW 13 (10-15) % Plt Count 225 (150-450) 10^3/uL MPV 7.7 (7.4-10.4) fL Neut % (Auto) 60.1 % Lymph % (Auto) 32.1 % [place] % (Auto) 5.4 % Eos % (Auto) 1.4 % Baso % (Auto) 1.0 % Absolute Neuts (auto) 6.6 (1.5-7.7) 10^3/ul Absolute Lymphs (auto) 3.5 (1.0-4.8) 10^3/ul Absolute Monos (auto) 0.6 (0-0.8) 10^3/ul Absolute Eos (auto) 0.2 (0-0.6) 10^3/ul Absolute Basos (auto) 0.1 (0-0.2) 10^3/ul Absolute Nucleated RBC 0.0 10^3/ul Nucleated RBC % 0.0 Result Diagrams: 02/22/20 17:04 02/22/20 17:04 Lab Statement: Any lab studies that have been ordered have been reviewed, and results considered in the medical decision making process. - Radiology Chest XR Radiology Interpretation Completed By: Radiologist Summary of Radiographic Findings: IMPRESSION: #. Pulmonary parenchymal findings may be seen with chronic obstructive pulmonary disease however bronchopneumoni should be considered depending on clinical presentation. #. Negative for pulmonary edema. Dr. Coyne has reviewed this report. - EKG 1659 Cardiac Rate: NL - at 90 bpm EKG Rhythm: Sinus Rhythm ST Segment: Normal Ectopy: None Summary of EKG Findings: EKG at 1659 shows sinus rhythm at a rate of [address]pm[address] No ischemic changes. Dr. Coyne has reviewed and interpreted this EKG. Chest Pain Course/Dx - Course Assessment/Plan: Patient is a 54 y/o male, with hx of OH s/p stents, presenting to [facility] c/o left sided chest pain since [id number] today. Patient describes intermittent left sided chest pain that radiates to his left arm. He notes he has tingling in left arm. HEART score: 3. Lab results unremarkable except for WBC of 10.9, glucose of 383. Second troponin is pending. Chest XR shows #. Pulmonary parenchymal findings may be seen with chronic obstructive pulmonary disease however bronchopneumoni should be considered depending on clinical presentation. #. Negative for pulmonary edema. In the ED course the patient was given IV fluids, Insulin. Patient will be signed out to Dr. Raya pending repeat troponin. Patient will be discharged home if it is negative. - Diagnoses Provider Diagnoses: Chest pain, Hyperglycemia Discharge ED - Sign-Out/Discharge Documenting (check all that apply): Sign-Out Patient Signing out patient TO: Gregory Raya - pending repeat troponin - Discharge Plan Condition: Stable Disposition: HOME Patient Education Materials: Chest Pain (ED) Referrals: Karyn Borja MD [Primary Care Provider] - 3 Days Additional Instructions: RETURN TO THE EMERGENCY DEPARTMENT FOR CHANGING OR WORSENING SYMPTOMS. Follow up with your primary care provider in 1-3 days. - Billing Disposition and Condition Condition: STABLE Disposition: Home - Attestation Statements Document Initiated by Sandra: Yes Documenting Timiibjoel: Doris Smith Provider For Whom Sandra is Documenting (Include Credential): Gregg Coyne DO Scribjoel Attestation: Doris Lake scribed for Gregg Coyne DO on 02/23/20 at 1220. Scribe Documentation Reviewed: Yes Provider Attestation: The documentation as recorded by the Doris spencer accurately reflects the service I personally performed and the decisions made by , Gregg Coyne DO Status of Scribe Document: Viewed
[2020-02-22 17:32] LABS: Albumin 4.1 g/dL (3.2-5.2); Albumin/Globulin Ratio 1.6 (1-3); Calcium 9.1 mg/dL (8.6-10.3); EGFR African American 126.5 (>60); EGFR Non-African American 104.5 (>60); Globulin 2.5 g/dL (2-4); Potassium 3.8 mmol/L (3.5-5.0); Total Bilirubin 0.5 mg/dL (0.2-1.0); Total Protein 6.6 g/dL (6.4-8.9)
[2020-02-22] MEDS ORDERED: NS 0.9% 1000 ML** 1,000 ML IV ONE ×2 (17:56→19:19)
[2020-02-22] MEDS ORDERED: Insulin REGULAR(*) 1 UNITS UNIT SUBCUT ONE (17:56)
[2020-02-22 18:40] LABS: C Reactive Protein 4.87 mg/L (<8.01)
--- NOTE | 2020-02-22 19:03 | ED ---
Progress - Progress Note Progress Note: The patient is a sign-out from Dr. Gregg Coyne DO, to Dr. Gregory Raya MD, at change of shift at 1900 on 02/22/20, pending second troponin results and disposition. Second troponin is 0.00. Patient is safe for discharge. Course/Dx - Course Course Of Treatment: Patient is here with atypical chest pain. Had an EKG, troponin, chest x-ray performed by Dr. Coyne which all showed no acute abnormality. Patient was signed out to myself pending second troponin and glucose reevaluation. Patient's glucose barely went down after insulin but patient states this has been his typical with this level ever since getting steroid injections in his knee. Patient has a heart score of 3 and was discharged with PCP follow-up - Diagnoses Provider Diagnoses: Chest pain, Hyperglycemia Discharge ED - Sign-Out/Discharge Documenting (check all that apply): Patient Departure - Patient will be discharged home., Receiving Sign-Out Receiving patient FROM: Sherman Coyne - Patient is a sign-out from Dr. Gregg Coyne DO, at change of shift at 1900 on 02/22/20, pending second troponin and disposition. - Discharge Plan Condition: Stable Disposition: HOME Patient Education Materials: Chest Pain (ED) Referrals: Karyn Borja MD [Primary Care Provider] - 3 Days Additional Instructions: RETURN TO THE EMERGENCY DEPARTMENT FOR CHANGING OR WORSENING SYMPTOMS. Follow up with your primary care provider in 1-3 days. - Billing Disposition and Condition Condition: STABLE Disposition: Home - Attestation Statements Document Initiated by Sandra: Yes Documenting Scribe: Bri Moreno Provider For Whom Sandra is Documenting (Include Credential): Gregory Raya MD Scribe Attestation: Bri Lake, scribed for Gregory Raya MD on 02/23/20 at 0111. Scribe Documentation Reviewed: Yes Provider Attestation: The documentation as recorded by the Bri spencer accurately reflects the service I personally performed and the decisions made by me, Gregory Raya MD Status of Scribe Document: Viewed
[2020-02-22 19:47] VITALS: BP 123/75
== END 2020-02-22 19:46 | disposition home or self-care (01) ==
LOC: ED 16:55
DX: R07.89 Other chest pain (principal); E11.65 Type 2 diabetes mellitus with hyperglycemia; Z79.4 Long term (current) use of insulin; K21.9 Gastro-esophageal reflux disease without esophagitis; I25.2 Old myocardial infarction; E78.00 Pure hypercholesterolemia, unspecified; E78.5 Hyperlipidemia, unspecified; I10 Essential (primary) hypertension; Z87.891 Personal history of nicotine dependence; Z95.5 Presence of coronary angioplasty implant and graft; Z79.82 Long term (current) use of aspirin; Z88.8 Allergy status to other drugs, medicaments and biological substances; Z86.73 Personal history of transient ischemic attack (TIA), and cerebral infarction without residual deficits
CPT/HCPCS: 36415; 71045; 80053; 84484; 85025; 85610; 86140; 96360; 96361; 99283